=== PATIENT | female | born 1945 | race Caucasian/White ===

== ENCOUNTER 2025-03-10 07:19 | Day surgery (SDC) | payer MEDICARE, SELFPAY ==
[2025-02-27 08:26] VITALS: BMI 27.0
[2025-02-27 08:39] VITALS: BMI 27.0
--- NOTE | 2025-03-06 14:12 | HO.ANESPROP2 ---
Documented by User: Estrella Farias NP 03/06/25 14:12 HPI - Anesthesia Eval Consult details Narrative: 79yo F for Left Cataract Extraction IOL Insertion No previous cataract on record [facility] Past Medical History Medical History (Updated 03/10/25 @ 08:32 by Emelyn Santiago RN) Hypothyroid Osteopenia IBS (irritable bowel syndrome) Basal cell carcinoma HTN (hypertension) Hiatal hernia GERD (gastroesophageal reflux disease) Diverticulosis Glaucoma Surgical History Surgical History Hx of appendectomy Hx of tonsillectomy History of partial hysterectomy History of lumpectomy of left breast H/O colonoscopy History of esophagogastroduodenoscopy (EGD) Social History Social History Patient Tobacco Use Status: Never used Tobacco Use of substances other than those prescribed or required for medical reasons: No Spiritual Healthcare Practices: unknown Muslim Healthcare Practices: unknown Cultural Healthcare Practices: unknown Advance Directives on File: No FDLMP: n/a Meds Allergies Allergy/AdvReac Type Severity Reaction Status Date / Time No Known Allergies Allergy Verified 03/10/25 08:22 Home Medications ?Medication ?Instructions ?Recorded ?Confirmed ?Last Taken ?Type calcium 500 mg (as 1 tab PO DAILY 02/27/25 02/27/25 Unknown History carbonate)-vitamin D3 5 mcg (200 unit) tablet (Calcium 500 + D) cholecalciferol (vitamin D3) 25 25 mcg PO DAILY 02/27/25 02/27/25 Unknown History mcg (1,000 unit) capsule (Vitamin D3) losartan 100 1 tab PO DAILY 02/27/25 02/27/25 Unknown History mg-hydrochlorothiazide 12.5 mg tablet multivitamin 1 tab PO DAILY 02/27/25 02/27/25 Unknown History Exam Height,Weight and Vital Signs: Height 5 ft Weight 62.8 kg Assessment and Plan Assessment Anesthesia Assessment: Chart Reviewed Documented by User: Lory Kenney MD 03/10/25 09:03 [facility] Past Medical History Medical History (Updated 03/10/25 @ 08:32 by Emelyn Santiago RN) Hypothyroid Osteopenia IBS (irritable bowel syndrome) Basal cell carcinoma HTN (hypertension) Hiatal hernia GERD (gastroesophageal reflux disease) Diverticulosis Glaucoma Family History Family history of problems with anesthesia: No Surgical History Surgical History Hx of appendectomy Hx of tonsillectomy History of partial hysterectomy History of lumpectomy of left breast H/O colonoscopy History of esophagogastroduodenoscopy (EGD) History of Problems with Anesthesia: No Social History Social History Patient Tobacco Use Status: Never used Tobacco Use of substances other than those prescribed or required for medical reasons: No Spiritual Healthcare Practices: unknown Muslim Healthcare Practices: unknown Cultural Healthcare Practices: unknown Advance Directives on File: No FDLMP: n/a Meds Allergies Allergy/AdvReac Type Severity Reaction Status Date / Time No Known Allergies Allergy Verified 03/10/25 08:22 Home Medications ?Medication ?Instructions ?Recorded ?Confirmed ?Last Taken ?Type calcium 500 mg (as 1 tab PO DAILY 02/27/25 02/27/25 Unknown History carbonate)-vitamin D3 5 mcg (200 unit) tablet (Calcium 500 + D) cholecalciferol (vitamin D3) 25 25 mcg PO DAILY 02/27/25 02/27/25 Unknown History mcg (1,000 unit) capsule (Vitamin D3) losartan 100 1 tab PO DAILY 02/27/25 02/27/25 Unknown History mg-hydrochlorothiazide 12.5 mg tablet multivitamin 1 tab PO DAILY 02/27/25 02/27/25 Unknown History Exam Airway Mallampati Class: III TM Dist: >3cm Neck ROM: Full Partial: Upper Heart: rrr Lungs: cta Assessment and Plan Assessment Anesthesia Assessment: Anesthesia Plan Discussed Final Anesthetic Review Family History of Problems with Anesthesia: No History of Problems with Anesthesia: No NPO: Yes ASA Class: II Final Preanesthetic Review: No Changes in Pt Med Stat, Meds/Allgs Chart Reviewed and Consent Obtained/Reviewed Patient Risk: Low Procedure Risk: Low Anesthetic Plan Anesthetic Plan: MAC: Disposition: Standard PACU
[2025-03-10 08:31] VITALS: BP 133/67; PULSE 75; RESP 15; TEMP 36.7; O2SAT 97
[2025-03-10] MEDS: Tetracaine HCl/PF 0.5% Oph Sol 4 ML DROPS 1 DROP EYE-LEFT (08:33)
[2025-03-10] MEDS: Cyclopentolate 1 % Ophth Sol 2 ML DRPBTL 1 DROP EYE-LEFT ×3 (08:34→08:44)
[2025-03-10] MEDS: Tropicamide 1 % Ophth Sol 3 ML BTL 1 DROP EYE-LEFT ×3 (08:36→08:45)
[2025-03-10] MEDS: Ketorolac Tromethamine 0.5% Op 5 ML DROPS 1 DROP EYE-LEFT ×3 (08:37→08:46)
[2025-03-10] MEDS: Phenylephrine HCL 2.5% Oph SoL 2 ML BOTTLE 1 DROP EYE-LEFT ×3 (08:39→08:47)
[2025-03-10] MEDS: Lactated Ringers 500 ML 50 ML IV (08:41)
--- NOTE | 2025-03-10 09:29 | MHC.SHP ---
Pre-Procedural Eval Section A - 24 Hr Update-Section A only Date of Service: 03/10/25 The patient is an INPATIENT: No Changes since office visit: No Cold of Flu in the past 2 weeks, No New Medical Problems, No Changes in Medication and No Patient answered all questions The patient has been examined within 24 hours of the surgical procedure. The History & Physical has been completed within 30 days and I have reviewed it.: Yes Section B - Complete if H&P > 30 days Chief Complaint: Age-related nuclear cataract, left eye Allergies: Allergies Allergy/AdvReac Type Severity Reaction Status Date / Time No Known Allergies Allergy Verified 03/10/25 08:22 Plan Diagnosis/Plan: Unchanged I have reviewed the history and physical and performed a pertinent physical examination on my patient. No changes have occurred unless specified. Time Spent With Patient Time: Total time managing care of this patient today ____ minutes.
--- NOTE | 2025-03-10 09:30 | HO.PNOPHT ---
Ophthalmology Procedure Procedure Date of Service: 03/10/25 Ophthalmology Viscoelastic: Healon Duet Dual Pack Pro Ophthalmology Lenses: IOL Acrysof MP - MA60AC (20) Procedure Notes: PREOPERATIVE DIAGNOSIS: Decreased visual acuity left eye secondary to cataract POSTOPERATIVE DIAGNOSIS: Same PROCEDURE: Left cataract extraction with intraocular lens insertion SURGEON: Sathish Mcqueen M.D. ANESTHESIA: Topical/MAC ESTIMATED BLOOD LOSS: None COMPLICATIONS: None After obtaining informed consent, the patient was brought to the operation room suite and placed in the supine position. After adequate sedation per anesthesia, topical drops of Tetracaine were given to the left eye. The eye was then prepped and draped in the usual sterile fashion. The operating room microscope was then positioned over the operative eye and a lid speculum placed. A paracentesis was created. Viscoelastic was then instilled into the anterior chamber. A three plane incision was then created temporally, utilizing a 2.85 mm keratome. Capsulotomy forceps were then utilized to create a circular tear capsulotomy. Hydrodissection and hydrodelineation were carried out until adequate mobilization of the nucleus occurred. Phacoemulsification was then utilized to remove the dense central nucleus followed by removal of the cortical material utilizing the automated aspiration irrigation unit. Viscoat elastic was instilled into the posterior capsular bag followed by placement of a posterior chamber intraocular lens without difficulty. The residual Viscoat elastic was then removed utilizing the automated IA machine. The wound was check and found to be watertight. The patient tolerated the procedure well and the lid speculum was removed. Intracameral injection of Vigamox 0.1 mL followed by a subtenon injection of Kenalog-40 0.2 mL were administered. The patient will be seen in the a.m.
[2025-03-10 09:56] VITALS: BP 161/65; PULSE 76; RESP 18; TEMP 36.9; O2SAT 99
== END 2025-03-10 10:02 | disposition home or self-care (01) ==
PROVIDERS: PCP Internal Medicine; Visit Provider Ophthalmology
PROC: (CPT 66985; principal; 2025-03-10 10:00)
DX: H25.12 Age-related nuclear cataract, left eye (principal); H52.4 Presbyopia; Z83.511 Family history of glaucoma; H40.033 Anatomical narrow angle, bilateral; H35.3122 Nonexudative age-related macular degeneration, left eye, intermediate dry stage; I10 Essential (primary) hypertension; K21.9 Gastro-esophageal reflux disease without esophagitis; Z79.1 Long term (current) use of non-steroidal anti-inflammatories (NSAID); Z79.899 Other long term (current) drug therapy
CPT/HCPCS: 66984; J3010; J3301; V2630

== ENCOUNTER 2025-03-24 07:17 | Day surgery (SDC) | payer MEDICARE, SELFPAY ==
[2025-02-27 08:42] VITALS: BMI 27.0
--- NOTE | 2025-03-20 09:42 | HO.ANESPROP2 ---
Documented by User: Estrella Farias NP 03/20/25 09:42 HPI - Anesthesia Eval Consult details Narrative: 79yo F for Right Cataract Extraction IOL Insertion Left eye 03/10/25: Fent 48 PMF[facility] Past Medical History Medical History Hypothyroid Osteopenia IBS (irritable bowel syndrome) Basal cell carcinoma HTN (hypertension) Hiatal hernia GERD (gastroesophageal reflux disease) Diverticulosis Glaucoma Family History Family history of problems with anesthesia: No Surgical History Surgical History Hx of appendectomy Hx of tonsillectomy History of partial hysterectomy History of lumpectomy of left breast H/O colonoscopy History of esophagogastroduodenoscopy (EGD) History of Problems with Anesthesia: No Social History Social History Patient Tobacco Use Status: Never used Tobacco Use of substances other than those prescribed or required for medical reasons: No Spiritual Healthcare Practices: unknown Hoahaoism Healthcare Practices: unknown Cultural Healthcare Practices: unknown Advance Directives on File: No FDLMP: n/a Meds Allergies Allergy/AdvReac Type Severity Reaction Status Date / Time No Known Allergies Allergy Verified 03/10/25 08:22 Home Medications ?Medication ?Instructions ?Recorded ?Confirmed ?Last Taken ?Type calcium 500 mg (as 1 tab PO DAILY 02/27/25 02/27/25 Unknown History carbonate)-vitamin D3 5 mcg (200 unit) tablet (Calcium 500 + D) cholecalciferol (vitamin D3) 25 25 mcg PO DAILY 02/27/25 02/27/25 Unknown History mcg (1,000 unit) capsule (Vitamin D3) losartan 100 1 tab PO DAILY 02/27/25 02/27/25 Unknown History mg-hydrochlorothiazide 12.5 mg tablet multivitamin 1 tab PO DAILY 02/27/25 02/27/25 Unknown History Exam Height,Weight and Vital Signs: Height 5 ft Weight 62.8 kg Assessment and Plan Assessment Anesthesia Assessment: Chart Reviewed Final Anesthetic Review Family History of Problems with Anesthesia: No History of Problems with Anesthesia: No Documented by User: Iveth Rios MD 03/24/25 08:47 [facility] Past Medical History Medical History Hypothyroid Osteopenia IBS (irritable bowel syndrome) Basal cell carcinoma HTN (hypertension) Hiatal hernia GERD (gastroesophageal reflux disease) Diverticulosis Glaucoma Surgical History Surgical History Hx of appendectomy Hx of tonsillectomy History of partial hysterectomy History of lumpectomy of left breast H/O colonoscopy History of esophagogastroduodenoscopy (EGD) Social History Social History Patient Tobacco Use Status: Never used Tobacco Use of substances other than those prescribed or required for medical reasons: No Spiritual Healthcare Practices: unknown Hoahaoism Healthcare Practices: unknown Cultural Healthcare Practices: unknown Advance Directives on File: No FDLMP: n/a Meds Allergies Allergy/AdvReac Type Severity Reaction Status Date / Time No Known Allergies Allergy Verified 03/10/25 08:22 Home Medications ?Medication ?Instructions ?Recorded ?Confirmed ?Last Taken ?Type calcium 500 mg (as 1 tab PO DAILY 02/27/25 02/27/25 Unknown History carbonate)-vitamin D3 5 mcg (200 unit) tablet (Calcium 500 + D) cholecalciferol (vitamin D3) 25 25 mcg PO DAILY 02/27/25 02/27/25 Unknown History mcg (1,000 unit) capsule (Vitamin D3) losartan 100 1 tab PO DAILY 02/27/25 02/27/25 Unknown History mg-hydrochlorothiazide 12.5 mg tablet multivitamin 1 tab PO DAILY 02/27/25 02/27/25 Unknown History Exam Airway Mallampati Class: II TM Dist: >3cm Neck ROM: Limited Heart: rrr Lungs: cta Assessment and Plan Assessment Anesthesia Assessment: Anesthesia Plan Discussed Final Anesthetic Review NPO: Yes ASA Class: II Final Preanesthetic Review: No Changes in Pt Med Stat, Meds/Allgs Chart Reviewed, Consent Obtained/Reviewed and Anes Risks/Benef Reviewed Patient Risk: Low Procedure Risk: Low Anesthetic Plan Anesthetic Plan: MAC: and Agree w/ Assess. and Plan Disposition: Standard PACU
[2025-03-24] MEDS: Lactated Ringers 500 ML 50 ML IV (08:58)
[2025-03-24] MEDS: Tetracaine HCl/PF 0.5% Oph Sol 4 ML DROPS 1 DROP EYE-RIGHT (08:59)
[2025-03-24] MEDS: Tropicamide 1 % Ophth Sol 3 ML BTL 1 DROP EYE-RIGHT ×3 (09:01→09:09)
[2025-03-24] MEDS: Ketorolac Tromethamine 0.5% Op 5 ML DROPS 1 DROP EYE-RIGHT ×3 (09:01→09:09)
[2025-03-24] MEDS: Phenylephrine HCL 2.5% Oph SoL 2 ML BOTTLE 1 DROP EYE-RIGHT ×3 (09:01→09:09)
[2025-03-24] MEDS: Cyclopentolate 1 % Ophth Sol 2 ML DRPBTL 1 DROP EYE-RIGHT ×3 (09:01→09:09)
[2025-03-24 09:11] VITALS: BP 143/57; PULSE 66; RESP 18; TEMP 36.6; O2SAT 98
--- NOTE | 2025-03-24 10:06 | MHC.SHP ---
Pre-Procedural Eval Section A - 24 Hr Update-Section A only Date of Service: 03/24/25 The patient is an INPATIENT: No Changes since office visit: No Cold of Flu in the past 2 weeks, No New Medical Problems, No Changes in Medication and No Patient answered all questions The patient has been examined within 24 hours of the surgical procedure. The History & Physical has been completed within 30 days and I have reviewed it.: Yes Section B - Complete if H&P > 30 days Chief Complaint: Age-related nuclear cataract, right eye Allergies: Allergies Allergy/AdvReac Type Severity Reaction Status Date / Time No Known Allergies Allergy Verified 03/24/25 08:58 Plan Diagnosis/Plan: Unchanged I have reviewed the history and physical and performed a pertinent physical examination on my patient. No changes have occurred unless specified. Time Spent With Patient Time: Total time managing care of this patient today ____ minutes.
--- NOTE | 2025-03-24 10:07 | P.PCNO_ITS ---
Ophthalmology Procedure Procedure Date of Service: 03/24/25 Ophthalmology Viscoelastic: Healon Duet Dual Pack Pro Ophthalmology Lenses: IOL Acrysof MP - MA60AC (20) Procedure Notes: PREOPERATIVE DIAGNOSIS: Decreased visual acuity right eye secondary to cataract POSTOPERATIVE DIAGNOSIS: Same PROCEDURE: Right cataract extraction with intraocular lens insertion SURGEON: Sathish Mcqueen M.D. ANESTHESIA: Topical/MAC ESTIMATED BLOOD LOSS: None COMPLICATIONS: None After obtaining informed consent, the patient was brought to the operating room suite and placed in the supine position. After adequate sedation per anesthesia, topical drops of Tetracaine were given to the right eye. The eye was then prepped and draped in the usual sterile fashion. The operating room microscope was then positioned over the operative eye and a lid speculum placed. A paracentesis was created. Viscoelastic was then instilled into the anterior chamber. A three plane incision was then created temporally, utilizing a 2.85 mm keratome. Capsulotomy forceps were then utilized to create a circular tear capsulotomy. Hydrodissection and hydrodelineation were carried out until adequate mobilization of the nucleus occurred. Phacoemulsification was then utilized to remove the dense central nucl eus followed by removal of the cortical material utilizing the automated aspiration irrigation unit. Viscoelastic was instilled into the posterior capsular bag followed by placement of a posterior chamber intraocular lens without difficulty. The residual Viscoelastic was then removed utilizing the automated IA machine. The wound was checked and found to be watertight. The patient tolerated the procedure well and the lid speculum was removed. Intracameral injection of Vigamox 0.1 mL followed by a subtenon injection of Kenalog-40 0.2 mL were administered. The patient will be seen in the a.m.
[2025-03-24 10:29] VITALS: BP 161/70; PULSE 72; RESP 18; TEMP 36.4; O2SAT 99
== END 2025-03-24 10:45 | disposition home or self-care (01) ==
PROVIDERS: PCP Internal Medicine; Visit Provider Ophthalmology
PROC: (CPT 66985; principal; 2025-03-24 10:00)
DX: H25.11 Age-related nuclear cataract, right eye (principal); H52.4 Presbyopia; H35.3111 Nonexudative age-related macular degeneration, right eye, early dry stage; H40.033 Anatomical narrow angle, bilateral; Z83.511 Family history of glaucoma; I10 Essential (primary) hypertension; K21.9 Gastro-esophageal reflux disease without esophagitis; Z79.1 Long term (current) use of non-steroidal anti-inflammatories (NSAID); Z79.899 Other long term (current) drug therapy
CPT/HCPCS: 66984; J3010; J3301; V2630